=== PATIENT | female | born 1990 | race Caucasian/White ===

== ENCOUNTER 2019-07-20 09:48 | Inpatient (IN) ==
[2019-07-20] MEDS ORDERED: RINGER'S SOLUTION,LACTATED 1,000 ML IV PRN (10:04)
[2019-07-20 10:26] LABS: Cocaine Ur Negative (NEGATIVE); Urine Barbiturate Negative (NEGATIVE); Urine Benzodiazepines Negative (NEGATIVE); Urine Opiates Negative (NEGATIVE); Urine PCP Negative (NEGATIVE); Urine THC Negative (NEGATIVE)
--- NOTE | 2019-07-20 10:45 | ANES ---
Anesthesia Pre Procedure Eval HOME MEDICATIONS ferrous sulfate 325 mg (65 mg iron) tablet 325 mg PO DAILY 06/21/19 [Last Taken Unknown] Vits96/Iron Fum/Folic [ S] 1 tab PO DAILY 07/20/19 [Last Taken Unknown] Allergies/Adverse Reactions: Allergies Allergy/AdvReac Type Severity Reaction Status Date / Time amoxicillin [Amoxicillin] Allergy Intermediate Hives Verified 07/20/19 10:00 Penicillins Allergy Intermediate Hives Verified 07/20/19 10:00 meperidine HCl [From Demerol] AdvReac Intermediate Nausea Verified 07/20/19 10:00 - Planned Procedure Planned Procedure: REPEAT C SECTION Medication List Reviewed:: Yes Allergies Verified: Yes Medical History (Last Reviewed 07/20/19 @ 10:44 by Unruly Aguilar CRNA) Depression Onset Date: ~2014 Tobacco abuse Onset Date: ~2013 Galactorrhea Onset Date: ~2013 Irregular menses Onset Date: ~2013 LGSIL on Pap smear of cervix Onset Date: ~2014 Lump or mass in breast Onset Date: ~2013 delivery Onset Date: ~2013 Wound disruption, post-op, skin Onset Date: ~2014 Surgical History (Last Reviewed 07/20/19 @ 10:44 by Unruly Aguilar CRNA) History of facial surgery Onset Date: ~1998 dog bite with facial reconstruction History of tonsillectomy Previous section 2008, 2010, 2013 previous c section Onset Date: ~2013 Family History (Last Reviewed 07/20/19 @ 10:44 by Unruly Aguilar CRNA) Mother Melanoma Father Alive and well Grandfather CVA (cerebral vascular accident) - Family Anesthesia History Family History:: no untoward family reactions to anesthesia - Airway/Neck/Teeth Within Normal Limits:: Yes Teeth Condition: intact Neck Exam: full range of motion Mallampatti Score: 1 Thyromental (T-M) distance: > 6 cm Mandibulo Hyoid distance: > 3 cm - Respiratory Respiratory Physical: lungs clear Smoking Status: Current every day smoker Discussed smoking cessation including day of surgery: No - pt. in mourning Sleep Apnea currently treated: No Sleep Apnea by current assessment: No - Cardiovascular Tolerate Activity: Good Heart Sounds: S1 & S2, Regular - Anesthesia Assessment and Plan ASA Class: PS, II Anesthesia Type Plan: Spinal Planned difficult intubation/equipment available: No
[2019-07-20] MEDS ORDERED: HYDROmorphone HCL 1 MG/ML DISP.SYRIN IV ONE (10:57)
[2019-07-20] MEDS ORDERED: GENTAMICIN SULFATE IV ONE ×2 (10:59)
[2019-07-20] MEDS ORDERED: CLINDAMYCIN PHOSPHATE 900 MG in DEXTROSE 5 % IN WATER 100 ML IV ONE ×2 (10:59)
[2019-07-20] MEDS ORDERED: DEXTROSE 5% IV ONE ×2 (10:59)
[2019-07-20] MEDS ORDERED: WATER IV ONE ×2 (10:59)
[2019-07-20] MEDS: OXYTOCIN 20 UNITS in RINGER'S SOLUTION,LACTATED 1,000 ML IV ONE ×2 (11:04→12:47)
[2019-07-20] MEDS: RINGER'S SOLUTION,LACTATED 1,000 ML IV PRN ×2 (11:04→13:40)
--- NOTE | 2019-07-20 11:33 | HP ---
Chief Complaint - Chief Complaint Date of Service: 07/20/19 Time of Service: : Chief Complaint: contractions History of Present Illness: 29 year old at 35w 5d who presented to labor and delivery in labor. She reports regular ctx. Denies LOF or VB. Fetus was not active. Medical History (Last Reviewed 07/20/19 @ 11:29 by Annemarie Tamayo MD) Depression Onset Date: ~2014 Tobacco abuse Onset Date: ~2013 Galactorrhea Onset Date: ~2013 Irregular menses Onset Date: ~2013 LGSIL on Pap smear of cervix Onset Date: ~2014 Lump or mass in breast Onset Date: ~2013 delivery Onset Date: ~2013 Wound disruption, post-op, skin Onset Date: ~2014 Surgical History: Surgical History (Last Reviewed 07/20/19 @ 11:29 by Annemarie Tamayo MD) History of facial surgery Onset Date: ~1998 dog bite with facial reconstruction History of tonsillectomy Previous section 2008, 2010, 2013 previous c section Onset Date: ~2013 Family History: Family History (Last Reviewed 07/20/19 @ 11:29 by Annemarie Tamayo MD) Mother Melanoma Father Alive and well Grandfather CVA (cerebral vascular accident) Social History: (Last Reviewed 07/20/19 @ 11:29 by Annemarie Tamayo MD) Social History: adopted: No Marital status: Single household members: children current occupational status: employed current occupation: [employer] current occupational exposures/hazards: No Highest education level completed: 10th grade Service: No Tobacco: Smoking Status: Current every day smoker tobacco type: cigarettes Smoking cigarettes per day: 30.0 Smoking packs per day: 1.5 Years smoked: 10 Smoking pack-years: 15.00 Alcohol: alcohol intake: current details: none since +UPT Substance Use: substance use type: does not use Dietary Habits: caffeine: Yes caffeine comment: 48 oz energy drinks Type: carbonated beverages Pets: pets and animals: cat(s), dog(s), snake(s) Review Of Systems (GEN) - Review of Systems Generalized/Overall Review: Present: No Symptoms Reported Genitourinary: Present: Other - contractions Misc: All systems neg except as marked Allergies/Adverse Reactions: Allergies Allergy/AdvReac Type Severity Reaction Status Date / Time amoxicillin [Amoxicillin] Allergy Intermediate Hives Verified 07/20/19 10:00 Penicillins Allergy Intermediate Hives Verified 07/20/19 10:00 meperidine HCl [From Demerol] AdvReac Intermediate Nausea Verified 07/20/19 10:00 Home Medications: HOME MEDICATIONS ferrous sulfate 325 mg (65 mg iron) tablet 325 mg PO DAILY 06/21/19 [Last Taken Unknown] Vits96/Iron Fum/Folic [ S] 1 tab PO DAILY 07/20/19 [Last Taken Unknown] Exam - Exam Vital Signs: 36.9 Celcius 109 16 100% RA 115/72 Constitutional: Present: Alert, Oriented x3, Cooperative, No distress ENT Exam: Present: hearing grossly normal Respiratory: Present: lungs clear, normal breath sounds Cardiovascular/Chest: Present: regular rate, rhythm Abdomen: Present: soft, nontender, nondistended Extremity: Present: non-tender, no calf tenderness Skin Exam: Present: normal color, warm/dry, no cyanosis Appearance: Present: appropriate appearance Eye contact: Present: cooperative Thoughts: Present: normal thought pattern Diagnostic Studies: Laboratory Results Urine Opiates Screen Negative (NEGATIVE) 07/20/19 09:45 Barbiturate Screen Negative (NEGATIVE) 07/20/19 09:45 Ur Phencyclidine Scrn Negative (NEGATIVE) 07/20/19 09:45 Urine Amphetamine Negative (NEGATIVE) 07/20/19 09:45 U Benzodiazepines Scrn Negative (NEGATIVE) 07/20/19 09:45 Urine Cocaine Screen Negative (NEGATIVE) 07/20/19 09:45 Urine Marijuana (THC) Negative (NEGATIVE) 07/20/19 09:45 Assessment/Plan - Narrative Narrative: 29 year old at 35w 5d 1. IUFD confirmed by ultrasound in radiology in a fetus known to have multiple anomalies 2. History of delivery x4: proceed with repeat delivery. Risks, benefits, and alternatives of the procedure were explained to the patient and the patient consented to the procedure. She understands that she is at increased risk of bowel/bladder injury given her history of multiple prior cesareans
[2019-07-20] MEDS ORDERED: ONDANSETRON HCL/PF 2 MG/ML VIAL ONE (11:37)
[2019-07-20] MEDS ORDERED: MIDAZOLAM HCL/PF 5 MG/ML VIAL ONE (11:37)
[2019-07-20] MEDS ORDERED: fentaNYL CITRATE/PF 50 MCG/ML AMPUL ONE (11:37)
[2019-07-20] MEDS ORDERED: diphenhydrAMINE HCL 25 MG CAPSULE PO PRN (13:50)
[2019-07-20] MEDS ORDERED: OXYTOCIN 20 UNITS in RINGER'S SOLUTION,LACTATED 1,000 ML IV ONE (13:50)
[2019-07-20] MEDS ORDERED: ONDANSETRON HCL/PF 2 MG/ML VIAL IV PRN (13:50)
[2019-07-20] MEDS ORDERED: SIMETHICONE 80 MG TAB.CHEW PO PRN (13:50)
[2019-07-20] MEDS ORDERED: HYDROcodone/ACETAMINOPHEN 1 EACH TABLET PO PRN (13:50)
[2019-07-20] MEDS ORDERED: RINGER'S SOLUTION,LACTATED 1,000 ML IV ONE (13:50)
[2019-07-20] MEDS ORDERED: BISACODYL 10 MG SUPP.RECT RC PRN (13:50)
[2019-07-20] MEDS ORDERED: SENNOSIDES 8.6 MG TABLET PO PRN (13:50)
--- NOTE | 2019-07-20 13:50 | OR ---
Operative Report - Dictated Report Narrative: Preoperative diagnosis: IUFD, fetus with multiple anomalies, history of delivery x4 Postoperative diagnosis: same Procedure: Repeat delivery Surgeon: Dr. Tamayo Anesthesia: Spinal Anesthesiologist: Jer Gonzales CRNA Description of the procedure: The patient was taken to the operating room where spinal anesthesia was induced. She was then prepped and draped in the supine position in the standard surgical fashion. Attention was then turned to the abdomen. A Pfannestiel skin incision was made following the prior incisions. The incision was carried through the subcutaneous tissue. The fascia was incised in the midline. The fascia was rather thick and adherent to the rectus muscles. The fascial planes were not well defined at all. The incision through the fascia led me to the peritoneum. The peritoneum was entered bluntly. The peritoneal incision was extended bluntly with good visualization of the bowel and bladder. A large Vitaliy retractor was placed. The bladder was slightly adherent to the lower uterine segment and thus a bladder flap was created. The uterus was incised in a low transverse fashion 2 cm superior to the bladder. The uterine incision was extended bluntly. The membranes were then noted and a dark color noted initially thought to be meconium. However, once the membranes were ruptured the fluid was apollo colored and very foul smelling. The fetus was in breech presentation. The fetus was delivered with the usual breech manuevers. The uterine incision was extended sharply bilaterally to accommodate the large head. I was able to place my hand under the head to effect delivery. The skin was peeling off. The cord was clamped and cut and the was handed off to the nursing staff. I was unable to obtain cord blood as expected. The placenta delivered without any difficulty. The uterus was cleared of all clots and debris. The uterine incision was closed initially with one layer of 0- vicryl. A second imbricating layer was placed. There was additional bleeding and 3 figure of eight sutures were placed using 0-vicryl. Pressure was held for 5 minutes. After that oozing was noted and Philomena was applied over the incision. Hemostasis was adequate after placing the Philomena. Next, all subfascial tissues were examined and made hemostatic in addition to the rectus muscles. Philomena was placed in these areas as well and hemostasis was noted to be adequate. The rectus mucles were approximated using 2-0 vicryl. The fascia was closed with 1-0 vicryl. The subcutaneous tissue was copiously irrigated and made hemostatic. The skin was closed with 3-0 monocryl on a Kit needle. Chamberino maguire was placed over the incision. A pressure dressing was applied to the incision. All sponge, lap, and needle counts were correct. The patient tolerated the procedure well. She was transferred to the recovery room in stable condition. EBL: 800 mL Complications: none Specimen: placenta
[2019-07-20 14:12] LABS: Hematocrit 32.5 % (37.0-47.0); Hemoglobin 10.9 gm/dL (12.5-16.0); Mean Cell Volume 95.6 fl (78-100); Mean Corpuscular Hemoglobin 32.1 pg (27-31); Mean Corpuscular Hgb Conc 33.5 g/dl (32-36); Mean Platelet Volume 10.1 fl (8-12.5); Neutrophil # 17.1 K/mm3 (1.3-6.0); Neutrophil % 80.4 % (42-75.0); Platelet Count 166 K/mm3 (150-450); Red Cell Distribution Width 14.1 % (11.5-14.0); White Blood Count 21.3 K/mm3 (4.0-10.5)
--- NOTE | 2019-07-20 14:16 | ANES ---
Post Anesthesia Discharge - Transfer of Care Transfer of Care handoff given to nurse: Yes - Discharge from PACU Discharge from PACU when meets criteria: Yes - Discharge to ASU Discharge to ASU-no complications/pt stable: Yes
[2019-07-20 14:20] LABS: Prothrombin Time (Patient) 10.7 Seconds (9.1-10.7)
[2019-07-20 14:25] LABS: INR 1.08 INR (0.92-1.08); Partial Thrombolplastin Time 33.4 Seconds (24-32)
[2019-07-20] MEDS: IBUPROFEN 800 MG TABLET PO PRN (14:37)
[2019-07-20] MEDS ORDERED: MORPHINE SULFATE 50 MG CARTRIDGE IV PRN ×2 (14:49→15:43)
[2019-07-20] MEDS ORDERED: diphenhydrAMINE HCL 50 MG/ML VIAL IV PRN ×2 (14:49→15:43)
[2019-07-20] MEDS ORDERED: NALOXONE HCL 1 MG/1 ML SYRG IV PRN ×2 (14:49→15:43)
--- NOTE | 2019-07-20 15:53 | ANES ---
Post Anesthesia Assessment - Vital Signs Vitals: Last Vital Signs Temp 36.2 C 07/20/19 15:05 Pulse 102 H 07/20/19 15:05 Resp 18 07/20/19 15:05 BP 127/76 07/20/19 14:50 Pulse Ox 100 07/20/19 15:05 Airway Patency: Normal - Mental Status Level Of Consciousness: Awake - Pain Level Pain Score: 9 - N/V Assessment Nausea/Vomiting Presence: None Dehydration:: No
[2019-07-20] MEDS: NORMAL SALINE 1,000 ML IV PRN ×2 (16:00→23:18)
[2019-07-20] MEDS: DOCUSATE SODIUM 100 MG CAPSULE PO SCH (21:52)
[2019-07-21 06:12] LABS: Hematocrit 27.2 % (37.0-47.0); Hemoglobin 9.2 gm/dL (12.5-16.0); Mean Cell Volume 95.4 fl (78-100); Mean Corpuscular Hemoglobin 32.3 pg (27-31); Mean Corpuscular Hgb Conc 33.8 g/dl (32-36); Mean Platelet Volume 10.5 fl (8-12.5); Neutrophil # 14.9 K/mm3 (1.3-6.0); Neutrophil % 79.3 % (42-75.0); Platelet Count 154 K/mm3 (150-450); Red Blood Count 2.85 M/mm3 (4.2-5.4); Red Cell Distribution Width 14.2 % (11.5-14.0); White Blood Count 18.8 K/mm3 (4.0-10.5)
[2019-07-21] MEDS: HYDROcodone/ACETAMINOPHEN 1 EACH TABLET PO PRN ×6 (06:36→23:39)
[2019-07-21] MEDS: DOCUSATE SODIUM 100 MG CAPSULE PO SCH ×2 (10:20→20:34)
[2019-07-21] MEDS: IBUPROFEN 800 MG TABLET PO PRN ×3 (10:20→23:38)
--- NOTE | 2019-07-21 10:35 | PN ---
Subjective - Date and Time Seen Date: 07/21/19 Time: 10:16 Subjective Narrative: Patient without complaints Objective Objective Narrative: See vital signs - Review of Systems Generalized/Overall Review: Reports: No Symptoms Reported Abdominal: Reports: No Symptoms Reported Genitourinary Symptoms: Reports: No Symptoms Reported - Vitals Vitals: Last Vital Signs Temp 36.8 C 07/21/19 06:58 Pulse 77 07/21/19 06:58 Resp 20 07/21/19 06:58 BP 98/54 07/21/19 06:58 Pulse Ox 98 07/21/19 06:58 - Abnormal Lab Findings Abnormal Lab Findings: Abnormal Lab Results 07/20/19 07/20/19 07/21/19 Range/Units 14:00 14:00 05:50 WBC 21.3 H 18.8 H (4.0-10.5) K/mm3 RBC 3.40 L 2.85 L (4.2-5.4) M/mm3 Hgb 10.9 L 9.2 L (12.5-16.0) gm/dL Hct 32.5 L 27.2 L (37.0-47.0) % MCH 32.1 H 32.3 H (27-31) pg RDW 14.1 H 14.2 H (11.5-14.0) % Immature Gran % (Auto) 1.00 H 0.50 H (0.001-0.429) % Immature Gran # (Auto) 0.22 H 0.10 H (0.000-0.0310) K/mm3 Neutrophils % 80.4 H 79.3 H (42-75.0) % Lymphocytes % 13.5 L 13.5 L (20-51) % Neutrophils # 17.1 H 14.9 H (1.3-6.0) K/mm3 PTT (Nadeem) 33.4 H (24-32) Seconds - Exam Constitutional: Present: Alert, Oriented x3, Cooperative, No distress Abdomen: Present: soft, nontender, nondistended - Incision dressing c/d/i Extremity: Present: non-tender, no calf tenderness Skin Exam: Present: normal color, warm/dry, no cyanosis Appearance: Present: appropriate appearance Eye contact: Present: cooperative Thoughts: Present: normal thought pattern Cauti Physician Documentation - Urinary Catheter Management Urethral (Ludwig) Urethral Indwelling: No Date of Insertion: 07/20/19 Time of Insertion: 12:30 Date of Removal: 07/20/19 Time of Removal: 23:00 Assessment/Plan Plan Narrative: POD 1 s/p repeat delivery The patient is doing well She desires to ambulate and she is currently ambulating She is doing well emotionally. She does report a history of depression but she reports she knows how to deal with it. Offered medication and the patient declined. She is counseled she can call for medication at any time. Remove dressing in 24 hours Discharge tomorrow given IUFD as long as the patient is doing well.
[2019-07-22] MEDS: HYDROcodone/ACETAMINOPHEN 1 EACH TABLET PO PRN ×3 (03:13→09:58)
[2019-07-22] MEDS: IBUPROFEN 800 MG TABLET PO PRN (06:32)
[2019-07-22 06:45] VITALS: BP 105/57
[2019-07-22] MEDS: DOCUSATE SODIUM 100 MG CAPSULE PO SCH (08:16)
--- NOTE | 2019-07-22 10:02 | PN ---
Subjective - Date and Time Seen Date: 07/22/19 Time: 10:00 Subjective Narrative: Patient without complaints Objective Objective Narrative: See vital signs - Review of Systems Generalized/Overall Review: Reports: No Symptoms Reported Misc: All systems neg except as marked - Vitals Vitals: Last Vital Signs Temp 36.9 C 07/22/19 06:42 Pulse 86 07/22/19 06:42 Resp 16 07/22/19 06:42 BP 105/57 07/22/19 06:42 Pulse Ox 99 07/22/19 06:42 - Exam Constitutional: Present: Alert, Oriented x3, Cooperative, No distress Abdomen: Present: soft, nontender, nondistended - incision c/d/i Extremity: Present: non-tender, no calf tenderness Skin Exam: Present: normal color, warm/dry, no cyanosis Appearance: Present: appropriate appearance Eye contact: Present: cooperative Thoughts: Present: normal thought pattern Cauti Physician Documentation - Urinary Catheter Management Urethral (Ludwig) Urethral Indwelling: No Date of Insertion: 07/20/19 Time of Insertion: 12:30 Date of Removal: 07/20/19 Time of Removal: 23:00 Assessment/Plan Plan Narrative: POD 2 s/p repeat delivery Doing well Discharge today Follow-up in 2 weeks to check incision and to reassess mood symptoms or sooner for any other concerns
== END 2019-07-22 11:10 | disposition home or self-care (01) | DRG 787 ==
LOC: OBCLINIC 09:48 → OB 10:35
PROVIDERS: ADMIT Obstetrics & Gynecology; ATTEND Obstetrics & Gynecology
CPT/HCPCS: 36415; 59025; 76815; 80307; 82565; 85025; 85384; 85460; 85610; 85730; 86850; 86870; 87070; 88307; J2405